=== PATIENT | male | born 1995 | race Caucasian/White ===

== ENCOUNTER 2018-04-23 12:41 | Emergency (ER) | payer BC ==
--- NOTE | 2018-04-23 12:42 | ER Report ---
History and Physical Time Seen By MD: 12:42 HPI/ROS Had an episode of vomiting this morning, and a piece of food lodged in his nostril. Since arriving in the emergency department he is since expelled the form body Constitutional Physical Exam General Appearance: The patient is alert, has no immediate need for airway protection and no current signs of toxicity. Eyes: Pupils equal and round no injection. Respiratory: Chest is non tender, lungs are clear to auscultation. Cardiac: regular rate and rhythm Gastrointestinal: Abdomen is soft and non tender, no masses, bowel sounds normal. Extremities have full range of motion and are non tender. Skin: No rashes or lesions. Medical Decision Making ED Course/Re-evaluation ED Course Foreign body lodged in patient's nares when he vomited early this morning. However after arrival and check into the emergency department the foreign body spontaneously expelled from his nares. Patient feels well at this time with no other complaints. He is no longer vomiting and able to take by mouth. Decision to Disposition Date: Apr 23, 2018 Decision to Disposition Time: 13:44 Depart Departure Latest Vital Signs Impression: Primary Impression: Nasal foreign body Condition: Improved Disposition: HOME OR SELF-CARE Additional Instructions: Return to the emergency department if her symptoms return. Problem Qualifiers Primary Impression: Nasal foreign body Encounter type: initial encounter Qualified Codes: T17.1XXA - Foreign body in nostril, initial encounter ROXY PORTILLO MD Apr 23, 2018 12:42
[2018-04-23 12:57] VITALS: BP 137/88
== END 2018-04-23 13:53 | disposition home or self-care (01) ==
LOC: ER 12:45
DX: T17.1XXA Foreign body in nostril, initial encounter (principal)
CPT/HCPCS: 99281